=== PATIENT | male | born 1975 | race Caucasian/White ===

== ENCOUNTER → 2019-03-30 15:02 | Outpatient (CLI) | payer BC, SELFPAY ==
[2019-03-30 16:28] LABS: Cholesterol 207 mg/dL (140-199); HDL Cholesterol 45 mg/dL (40-60); LDL Cholesterol Calculated 118 mg/dL (<100); Triglycerides 218 mg/dL (35-150)
[2019-03-30 16:41] LABS: Vitamin D 25 Hydroxy (D3) 17.4 ng/mL (30.0-100.0)
[2019-04-03 14:33] LABS: Varicella IgG Antibody < 135.00 Index (< 135.00)
== END ==
PROVIDERS: PCP Student in an Organized Health Care Education/Training Program; Visit Provider Student in an Organized Health Care Education/Training Program
DX: E55.9 Vitamin D deficiency, unspecified (principal); Z71.1 Person with feared health complaint in whom no diagnosis is made; Z71.89 Other specified counseling; Z13.220 Encounter for screening for lipoid disorders
CPT/HCPCS: 36415; 80061; 82306; 86787

== ENCOUNTER 2019-04-24 09:52 | Observation (INO) | payer BC, SELFPAY ==
[2019-04-17 14:30] VITALS: BMI 31.1
[2019-04-24] VITALS (30 sets, daily range): BP systolic 113–152; BP diastolic 71–107; PULSE 60–119; RESP 9–20; TEMP 35.7–37.1; O2SAT 90–98; BMI 31.1
--- NOTE | 2019-04-24 | PATH_ITS ---
[facility] Accession Number: [id number] . 01 Material submitted: . hernia - UMBILICAL HERNIA SAC . 02 Diagnosis: Umbilica Hernia Sac, Hernia Repair: Portions of partially mesothelial-lined fibroadipose and fibroconnective tissue, consistent with hernia sac contents. [facility]/04/26/2019 . 02 Electronically signed: . Maddy Jones MD, Pathologist NPI- [id number] . 01 Gross description: . Received in formalin, labeled umbilical hernia sac, is a piece of cifuentes-yellow and plummer-purple rubbery membranous adipose tissue (8.6 x 5.5 x 1.4 cm). Validation Architect tissue is submitted in cassettes A1 and A2. ([id number]) /MRV . 02 Pathologist provided ICD-10: K42.9 . 02 CPT . 506848 Performed at: 01 [facility] [address] [facility], [place], [place] [id number] MD Stoen Hutson MD Phone: [phone] Performed at: 02 [facility] [address] [place], [place] [id number] MD Sheri Gotti MD Phone: [phone]
--- NOTE | 2019-04-24 10:32 | PM.PREOP ---
Pre-operative Note Interval Note History & Physical reviewed/Exam performed by Physician: Yes Changes to H&P: No
[2019-04-24] MEDS: LACTATED RINGERS 1,000 ML 100 ML IV ×3 (10:44→13:55)
[2019-04-24] MEDS: CEFAZOLIN 2 GM/100 ML FROZ.PIGGY IV (10:51)
--- NOTE | 2019-04-24 11:06 | SUR.OPER ---
Supine on padded OR bed, head on pillow, arms secured on padded arm boards at <90 degrees abduction, legs uncrossed, safety belt at thigh, tape over blanket over lower legs.
[2019-04-24] MEDS: BUPIVACAINE 0.5% (PF) VIAL 30 ML INJ (11:19)
[2019-04-24] MEDS: HYDROMORPHONE 2 MG INJ 0.5 MG IV ×2 (13:09→13:18)
[2019-04-24] MEDS: ONDANSETRON 4 MG/2 ML INJ IV ×2 (13:23→13:41)
--- NOTE | 2019-04-24 13:25 | P.OP_ITS ---
Operative Date/Time/Diagnoses Date of procedure: 04/24/19 Time of procedure: 13:15 Pre-op diagnosis: umbilical hernia Post-op diagnosis: same Procedure & Clinicians Procedure: open umbilical hernia repair with mesh Same procedure as scheduled: Yes Indications: 43 y.o male with a symptomatic umbilical hernia. Surgeon: Dejan Hall Click Yes if Unassisted: Yes Anesthesia Type: General Operative Notes Findings: incarcerated umbilical hernia containing omentum Specimen(s): other (hernia sac) Estimated Blood Loss (mL): 10 Procedure in detail: Patient was brought to the operating room and placed supine on the table. Bilateral lower extremity compression devices were applied. General anesthesia was induced and he was intubated with a LMA. He was then prepped and draped in usual sterile fashion. Time-out was performed to ensure the correct patient procedure necessary equipment within the operating room. He received 2 g of Ancef prior to skin incision. A curvilinear infraumbilical incision was made through the skin and subcutaneous tissue. The hernia sac was dissected off of the umbilicus. The hernia sac was large and chronically incarcerated. The adhesions between the hernia sac and the fascia were carefully dissected circumferentially. Despite this it was still incarcerated and required extending the fascial defect inferiorly with [place]. The hernia sac was opened carefully using tess and was found to contain viable omentum. The hernia sac was transected and passed off the field as specimen. The omentum was returned to the abdomen. Below the the level of the fascia I freed up the adhesions of the hernia sac so that there was a clean margin of fascia circumferentially and the hernia was entirely reduced. The defect measured 8 by 8 cm and we selected a 10 x 15 piece of polypropelen mesh. The mesh was trimmed to size to allow a 2 cm fascial overlap. The mesh was then secured to the undersurface of the fascia circumferentially using interupted 0 Prolene suture. Wound was inspected and found to be hemostatic. The subcutaneous tissues then reapproximated using 3 0 Vicryl. The skin was then closed using a running Monocryl suture followed by the application of Dermabond. Sponge instrument count at the end of the operation was correct. Patient tolerated procedure well. He emerged from anesthesia and was extubated and transferred to the postoperative care unit in stable condition Complications: none Condition: stable Disposition: same day surgery
--- NOTE | 2019-04-24 13:32 | SUR.PHASEI ---
Report given to Rachel SIMON .
--- NOTE | 2019-04-24 13:35 | SUR.PHASEI ---
States that nausea is a little better, pain 5-6/10 discomfort more that sharp pain.
--- NOTE | 2019-04-24 13:46 | SUR.PHASEI ---
1341 Rx repeated for nausea. pain 'doesn't feel any different... it feels like pressure.
--- NOTE | 2019-04-24 14:15 | SUR.PHASEI ---
dozing, arouses easily, diaphoretic after fentanyl, cool washcloth to face, states that his pain and nausea are improved after medication.
--- NOTE | 2019-04-24 14:38 | SUR.PHASEI ---
aroused spontaneously, requested water. Denies nausea. States pain is 4/10. Sat hovering 92-93% @ 4LNP. Told patient that we need him to breath deeper. Returned to sleep.
--- NOTE | 2019-04-24 15:09 | SUR.PHASEI ---
discussed patient status with coordinator, JOSE, goes down to 92% on 4LNP, have not attempted to wean from O2. Plan to transfer to OPD on 4LNP and will discuss with surgeon when he is available.
[2019-04-24] MEDS: METOCLOPRAMIDE 10 MG/2 ML INJ IV (15:28)
--- NOTE | 2019-04-24 15:33 | SUR.PHASEI ---
1533 had a brief episode of nausea which resolved quickly. Had planned to medicate for nausea prior to pain med. While the anti-emetic was being administered, pt. stated that his pain had gone down from a 6 to a 4/10. States that he doesn't need med.
[2019-04-24] MEDS: fentaNYL 100 MCG/2 ML INJ 50 MCG IV (15:44)
--- NOTE | 2019-04-24 16:22 | SUR.PHASEI ---
Resumed care. Patient awake, oriented, denies pain other that 3/10 at surgical site. Denies any other pain or nausea. Dr. Hall reviewing EKG, will ask anesthesia to review. Returned to O2 @ 4LnP. Pt. texting , will have her return to the hospital. 0135 Glenna Valencia RN taking EKG to anesthesia.
--- NOTE | 2019-04-24 16:26 | DI.RAD.S_ITS ---
PROCEDURE: XR CHEST 1V INDICATIONS: Hypoxia post operative TECHNIQUE: One view of the chest was acquired. COMPARISON: None. FINDINGS: Surgical changes and devices: None. Lungs and pleura: Lung volumes are low. Mild atelectasis is present at the left lung base. The lungs are otherwise clear. No pleural effusion or pneumothorax. Mediastinum: Mediastinal contours appear normal. Heart size is normal. Bones and chest wall: No suspicious bony lesions. Overlying soft tissues appear unremarkable. IMPRESSION: Low lung volumes and left basilar atelectasis. Dictated by: Vale Corley M.D. on 04/24/2019 at 17:09 Approved by: Vale Corley M.D. on 04/24/2019 at 17:09
--- NOTE | 2019-04-24 16:33 | SUR.PHASEI ---
CXR done, surgeon is talking with the patient after reviewing pt w/anesthesia. He will go talk to the patient's .
--- NOTE | 2019-04-24 16:56 | PM.EVENT ---
Date Patient Seen: 04/24/19 Time Patient Seen: 16:56 The patient evaluated in PACU status post umbilical hernia repair. Patient was in significant amount of abdominal pain received IV Dilaudid and fentanyl. He now mildly hypoxic to the upper 80s on room air. His vital signs are otherwise within normal limits. He has no complaint at this point denies chest pain, abdominal pain is controlled no emesis. An EKG was performed and demonstrates normal sinus rhythm a chest x-ray was performed that demonstrates normal expanded lungs no evidence of pneumothorax per my read official read is pending. I discussed the hypoxia with patient and his and I think the most reasonable plan is to bring him in overnight for observation with telemetry.
[2019-04-24 17:13] LABS: Troponin I < 0.012 ng/mL (0.01-0.034)
--- NOTE | 2019-04-24 17:31 | SUR.PHASEI ---
1705 Dr. cheung spoke with patient, approved transfer to floor. 1710 to room 215. Pt. able to stand to transfer into the bed, slightly light-headed (pt got up too quickly). He wanted to walk into the bathroom, but he was place into the bed and offered a urinal. SCD's on. Bed down and locked, call light within reach, O2 at 4LNP. Report was given to RN prior to transfer, no further questions on arrival. Staff will place telemetry on the patient.
--- NOTE | 2019-04-24 17:43 | SUR.PHASEI ---
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
[2019-04-24] MEDS: SODIUM CHLORIDE 0.9% 1,000 ML 100 ML IV (18:06)
[2019-04-24] MEDS: KETOROLAC 30 MG/ML VIAL IV (18:19)
--- NOTE | 2019-04-24 18:54 | PC.NURSE ---
Addendum entered by Jennifer You R.N. 04/24/19 21:35: Pt denies discomfort w/ketoralac Ambulated hallway w/staff. IVF changd to HL as per orders. Taking general diet. Call light w/in reach, bed alarm on for pt safety. Continue w/plan of care. Original Note: Pt arrived from PACU awake Denies discomfort at this time. IV NS infusing as per orders into the right hand w/o incidence. ABD soft, slightly tender to touch, Incision w/surgi glue intact. Call light w/in reach, in room Pt calls appropriately for needs.
[2019-04-24] MEDS: ACETAMINOPHEN 325 MG TABLET 650 MG PO (23:58)
[2019-04-25] MEDS: KETOROLAC 30 MG/ML VIAL IV (05:27)
[2019-04-25 05:45] VITALS: BP 134/77; PULSE 94; RESP 17; TEMP 36.6; O2SAT 99
--- NOTE | 2019-04-25 07:41 | PM.DS.1 ---
History of Present Illness Chief complaint: [id number] UMBILICAL HERNIA REPAIR W/MESH Discharge Providers Discharge Date: 04/25/19 Primary care physician: Tom Resendiz MD Discharge provider: Dejan Hall MD Summary Discharge Diagnosis: umbilical hernia mild hypoxia requiring supplemental oxygen narcotic sensitivity Hospital Course: A 43-year-old man with no significant medical history underwent a open umbilical hernia repair on 04/24/2019. Operation was unremarkable. Postoperatively the patient had a significant amount of nausea associated with respiratory insufficiency. He required supplemental oxygen to maintain his saturations and would desat to the high 80s when taken off oxygen. He underwent a EKG chest x-ray as well as troponin which were all normal. Given his mild hypoxia I kept him for observation. Overnight he did very well with resolution of his hypoxia. His nausea is gone. He is tolerating a diet. I think the most likely explanation is that he had sensitivity to the narcotics and after switching him to Toradol his problems completely resolved. He is stable for discharge at this time. Status at Discharge Cognitive/behavioral status at discharge: oriented Functional status at discharge: independent ambulation Overall status at discharge: patient is back to baseline Time Spent with Patient Less than 30 minutes Exam Vital Signs (past 8 hours): - 04/25/19 05:45 Temperature 97.8 F Pulse Rate 94 H Respiratory Rate 17 Blood Pressure 134/77 Pulse Oximetry 99 Oxygen Delivery Method Nasal Cannula Oxygen Flow Rate 1 Narrative Exam Narrative: General-adult male no acute distress, well nourished HEENT-moist mucous membranes, no scleral icterus Neck-supple with full range of motion, no lymphadenopathy Chest- no labored respirations, clear to auscultation bilaterally Cardiac-regular rate and rhythm Abdomen-soft, nontender, non distended. Infraumbilical incision clean dry intact. No palpable hernia. Extremities-no edema, warm well perfused Neurological-alert and oriented x 3. No focal deficits Skin-normal temperature and turgor, no rashes or ulcers Objective Labs Labs: Laboratory Results - last 24 hr 04/24/19 16:45 Troponin I < 0.012 Discharge Plan Discharge Plan Patient Disposition: Home Discharge Med Rec/Prescriptions Prescriptions: New oxycodone 5 mg capsule 5 mg PO Q4-6H PRN (Reason: pain) Qty: 50 RF: 0 acetaminophen [Tylenol] 325 mg tablet 650 mg PO Q6H PRN (Reason: pain) Qty: 60 RF: 0 ibuprofen 200 mg tablet 400 mg PO Q6H Qty: 60 RF: 0 Follow up/Referrals: Tom Resendiz MD [Primary Care Provider] - Dejan Hall MD [Physician] - Discharge Orders: Discharge (Order); Ordered 04/24/19 Ordered By: Dejan Hall Provider Discharge Instructions Diet: Diet as Tolerated Activity: No lifting >15 lbs for 4 weeks. No driving or operating machinery while taking narcotics. Skin/Wound/Dressing Care Report to your healthcare provider any signs of infection, such as:: chills, fever, increased pain, unusual drainage and unusual redness Visit Report/Discharge Packet Instructions: DI for Hernia Repair, [facility]: Wound Care Stand Alone Forms: Surgery Discharge Discharge Data Primary Care Provider: Tom Resendiz Attending Provider: Dejan Hall
[2019-04-25 08:00] VITALS: BP 120/82; PULSE 96; RESP 18; TEMP 36.8; O2SAT 96
[2019-04-25] MEDS: ACETAMINOPHEN 325 MG TABLET 650 MG PO (08:33)
--- NOTE | 2019-04-25 10:22 | PC.NURSE ---
AM NOTE - pt is alert, up ambul indep to br, voided, to chair, states pain well managed with earlier toradol, Dr. Hall in and umbilical bonded incision w/o drainage, some surrounding bruising, no flatus yet, denies nausea and juarez gen diet this am, discussed constipation, narcotics, given oxycodone script from surg and already filled, reviewed dc instructions with pt and spouse, belongings gathered, including clothing, glasses and cell phone, escorted ambulatory by human resources executive to spouse's car.
--- NOTE | 2019-04-25 11:09 | CM.DANOTE ---
DCP: Case received, EMR reviewed and met with patient. Introduced self and role. Was able to obtain baseline health history from patient. DCP assessment completed with information currently available. Patient is a 43 year old male who admitted yesterday morning to the care of the surgical team. PCP: Dr. Resendiz. Payer: confirmed: Out of [facility] [address]. Patient came to the hospital for a surgical procedure. He had umbilical hernia repair. Met with patient in his room. He was dressed, up sitting in his chair. He is independent, resides in [place] with his . 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 He stated, the surgery went well, just had trouble with the narcotic that they gave me, so they had to keep an eye on me. He has children at home as well. P: Patient is to be discharged home today, with no barriers. Porsha Velasquez RN/Auto Air Conditioning Installer.
== END 2019-04-25 10:43 | disposition home or self-care (01) ==
LOC: OR 13:13 → AC 17:37
PROVIDERS: Admitting Provider Surgery; PCP Student in an Organized Health Care Education/Training Program; Visit Provider Surgery
PROC: (CPT 49587; principal; 2019-04-24 11:00)
DX: K42.0 Umbilical hernia with obstruction, without gangrene (principal); R09.02 Hypoxemia
CPT/HCPCS: 49587; 36415; 71045; 84484; 93005; 94762; C1781; G0378; J0330; J0690; J1100; J1170; J1885; J2405; J2704; J2765; J3010

== ENCOUNTER 2019-05-09 09:07 | Emergency (ER) | payer BC, SELFPAY ==
[2019-04-24 18:08] VITALS: BMI 31.1
[2019-05-09] VITALS (8 sets, daily range): BP systolic 122–153; BP diastolic 89–103; PULSE 82–110; RESP 15–22; TEMP 36.7; O2SAT 94–100
--- NOTE | 2019-05-09 09:19 | ED_ITS ---
HPI - Skin/Abscess/Foreign Bdy General Chief complaint: Skin/Abscess/Foreign Body Stated complaint: POST OP WOUND TWISTING,BLEEDING Time Seen by Provider: 05/09/19 09:18 Source: patient Mode of arrival: ambulatory Limitations: no limitations History of Present Illness HPI narrative: This is a 43-year-old male who comes to the emergency department with complaint of drainage from his belly button. Patient had umbilical hernia repair 3 weeks ago. Patient denies any fevers, no nausea vomiting no issues with bowel movements. He has been stooling regularly. No urinary symptoms. He states he had pain at the belly button with increasing redness and swelling of the belly button. He states that it looked like it was sort of twisting or that the belly button was coming out. Today when he got up to use the restroom he noted that there was reddish fluid coming out of the belly button. It has continued since then. Patient states that the pain was actually a little better yesterday. He is supposed to see his surgeon today for follow-up. Patient denies any other medical issues. Related Data Home Medications Medication Instructions Recorded Confirmed oxycodone 5 mg PO Q4HR PRN 05/09/19 05/09/19 Previous Rx's Medication Instructions Recorded acetaminophen [Tylenol] 650 mg PO Q6H PRN #60 tab 04/24/19 ibuprofen 400 mg PO Q6H #60 tab 04/25/19 clindamycin HCl 300 mg PO QID #40 cap 05/09/19 Allergies Allergy/AdvReac Type Severity Reaction Status Date / Time fentanyl AdvReac Mild Nausea, Verified 05/03/19 16:04 diaphoresis hydromorphone [From Dilaudid] AdvReac Mild Nausea Verified 05/03/19 16:04 Review of Systems Review of Systems ROS Unobtainable: All systems reviewed & are unremarkable except as noted in HPI and below Constitutional Constitutional: Denies chills and Denies fever(s) Cardiovascular Cardiovascular: Denies chest pain and Denies dyspnea Respiratory Respiratory: Denies dyspnea Gastrointestinal Gastrointestinal: Reports abdominal pain (At the umbilicus), Denies melena, Denies hematochezia, Denies change in bowel habits, Denies diarrhea, Denies nausea and Denies vomiting Genitourinary Genitourinary: Denies hematuria, Denies flank pain, Denies urinary frequency, Denies urinary hesitancy and Denies urinary urgency Integumentary/Breasts Skin/Breast: Reports as per HPI and Reports erythema [facility] Medical History Vision disorder (Chronic) Family History Father Cancer Grandfather History of heart disease Grandmother Cancer Grandfather Aneurysm Grandmother Liver failure Social History marital status: household members: spouse occupational status: employed Smoking Status: Never smoker alcohol intake: never substance use type: does not use Social History marital status: household members: spouse occupational status: employed Smoking Status: Never smoker alcohol intake: never substance use type: does not use Exam Narrative Exam Narrative: GENERAL: Alert and oriented x three, nourished, well-appearing male in mild distress. HEENT: Head normocephalic, atraumatic, EOMI, pupils reactive, face symmetric, moist mucous membranes NECK: Supple, full range of motion CARDIOVASCULAR: Regular rate and rhythm without murmurs, rubs or gallops. RESPIRATORY: Breath sounds equal bilaterally, no wheezes rales or rhonchi. ABDOMEN: Soft, nontender to palpation. Patient's umbilicus appears swollen and his umbilicus is now an outie or external. Patient has some surrounding erythema, there is some slight induration but the area is soft. It is nontender. I am able to express serosanguineous fluid easily with palpation. Normoactive bowel sounds all 4 quadrants. No guarding or rebound, rigidity, no mass : No CVA tenderness EXTREMITIES: Normal range of motion, no clubbing or edema. Neurovascularly intact NEUROLOGICAL: Cranial nerves II through XII grossly intact. Moving all extremities SKIN: Warm, dry, no petechiae, no rashes or lesions. Initial Vital Signs Initial Vital Signs: Vital Signs Pulse Rate 110 H 05/09/19 09:12 Respiratory Rate 22 05/09/19 09:12 Blood Pressure 153/96 H 05/09/19 09:12 Pulse Oximetry 99 05/09/19 09:12 Course Orders Ordered: Discontinued Medications Sodium Chloride (Normal Saline 0.9%) 1,000 mls @ 1,000 mls/hr IV BOLUS ONE Stop: 05/09/19 10:16 Last Infusion: 05/09/19 12:12 Dose: 0 mls/hr Documented by: Admin: 05/09/19 10:10 Dose: 1,000 mls/hr Documented by: SELINA Clindamycin Phosphate (Cleocin) 600 mg in 50 mls @ 50 mls/hr IV NOW ONE Stop: 05/09/19 11:02 Last Infusion: 05/09/19 12:12 Dose: 0 mls/hr Documented by: Admin: 05/09/19 10:42 Dose: 50 mls/hr Documented by: SELINA Vital Signs Vital signs: Vital Signs - 8 hr 05/09/19 11:30 05/09/19 12:05 Pulse Rate 86 82 Respiratory Rate 19 18 Blood Pressure [Right Arm] 123/96 H 126/99 H Pulse Oximetry 98 97 MDM - Skin/Abscess/Foreign Bdy Lab Data Attestation: I reviewed the patient's lab results. Result diagrams: 05/09/19 09:33 05/09/19 09:33 Labs: Lab Results 05/09/19 05/09/19 05/09/19 Range/Units 09:33 09:33 09:33 WBC 6.2 (4.5-11.0) X10^3/uL RBC 5.19 (4.5-5.9) X10^6/uL Hgb 15.1 (13.5-17.5) g/dL Hct 44.5 (41-53) % MCV 85.9 (80-100) fL MCH 29.0 (26-34) PG MCHC 33.8 (30-36) % RDW 13.5 (11.6-14.8) % Plt Count 356 (150-400) X10^3/uL Neut % (Auto) 52.1 (50-75) % Lymph % (Auto) 36.5 (25-40) % [place] % (Auto) 7.9 (3-14) % Eos % (Auto) 2.7 (2-4) % Baso % (Auto) 0.8 (0-2) % Neut # (Auto) 3200 (0183-3592) /uL Lymph # (Auto) 2300 (9553-9560) /uL [place] # (Auto) 500 (0-900) /uL Eos # (Auto) 200 (0-450) /uL Baso # (Auto) 100 (0-100) /uL PT 12.2 (10.1-12.7) SECONDS INR 1.1 (0.9-1.3) APTT 35 (26.4-36.2) SECONDS Sodium (137-145) mmol/L Potassium (3.4-5.1) mmol/L Chloride (98-107) mmol/L Carbon Dioxide (22-32) mmol/L BUN (9-20) mg/dL Creatinine (0.66-1.25) mg/dL Estimated GFR (>60) mL/min BUN/Creatinine Ratio (6-22) Glucose (70-100) mg/dL Lactate (0.7-2.1) mmol/L Calcium (8.4-10.2) mg/dL Total Bilirubin (0.2-1.3) mg/dL AST (17-59) IU/L ALT (21-72) IU/L Alkaline Phosphatase (38-126) U/L Total Protein (6.3-8.2) g/dL Albumin (3.5-5.0) g/dL Globulin (1.7-4.1) g/dL Albumin/Globulin Ratio (1.0-2.8) Lipase (23-300) U/L Procalcitonin < 0.05 (<0.5) ng/mL 05/09/19 05/09/19 Range/Units 09:33 09:33 WBC (4.5-11.0) X10^3/uL RBC (4.5-5.9) X10^6/uL Hgb (13.5-17.5) g/dL Hct (41-53) % MCV (80-100) fL MCH (26-34) PG MCHC (30-36) % RDW (11.6-14.8) % Plt Count (150-400) X10^3/uL Neut % (Auto) (50-75) % Lymph % (Auto) (25-40) % [place] % (Auto) (3-14) % Eos % (Auto) (2-4) % Baso % (Auto) (0-2) % Neut # (Auto) (3953-8663) /uL Lymph # (Auto) (2066-7034) /uL [place] # (Auto) (0-900) /uL Eos # (Auto) (0-450) /uL Baso # (Auto) (0-100) /uL PT (10.1-12.7) SECONDS INR (0.9-1.3) APTT (26.4-36.2) SECONDS Sodium 140 (137-145) mmol/L Potassium 4.0 (3.4-5.1) mmol/L Chloride 100 (98-107) mmol/L Carbon Dioxide 27 (22-32) mmol/L BUN 23 H (9-20) mg/dL Creatinine 1.00 (0.66-1.25) mg/dL Estimated GFR > 60.0 (>60) mL/min BUN/Creatinine Ratio 23.0 H (6-22) Glucose 103 H (70-100) mg/dL Lactate 1.3 (0.7-2.1) mmol/L Calcium 9.6 (8.4-10.2) mg/dL Total Bilirubin 0.6 (0.2-1.3) mg/dL AST 21 (17-59) IU/L ALT 13 L (21-72) IU/L Alkaline Phosphatase 67 (38-126) U/L Total Protein 8.1 (6.3-8.2) g/dL Albumin 4.6 (3.5-5.0) g/dL Globulin 3.5 (1.7-4.1) g/dL Albumin/Globulin Ratio 1.3 (1.0-2.8) Lipase 164 (23-300) U/L Procalcitonin (<0.5) ng/mL Imaging Data US - abdomen: Radiologist's impression: [address] [address] Ultrasound Report Signed Patient: Orlando Davis CMR#: [id number] : 1975Acct:[id number] Age/Sex: 43 / MDate of Service: 05/09/19 Loc: ED Accession Number: [id number] Procedure: US abdomen limited Ordering Provider: Mank,Soledad C D.O. PROCEDURE: US ABDOMEN LIMITED INDICATIONS: DRAINAGE FROM UMBILICUS, S/P UMBILICAL HERNIA REPAIR TECHNIQUE: Real-time focused scanning was performed of the abdomen, with image documentation. COMPARISON: None. FINDINGS: Targeted sonographic imaging within the periumbilical region of the anterior abdomen was performed. There appears to be a complex fluid collection within the peritoneal cavity or deep subcutaneous tissues of the periumbilical region that measures 5.8 x 3.8 x 6.4 cm. No definite recurrent hernia is evident. IMPRESSION: 1. No evidence of a recurrent periumbilical hernia. 2. Complex fluid collection at the surgical site may represent hematoma, seroma, or abscess. Clinical correlation is recommended. The need for better characterization utilizing contrast enhanced CT may be determined clinically. Dictated by: Selvin Wilson M.D. on 05/09/2019 at 9:48 Approved by: Selvin Wilson M.D. on 05/09/2019 at 9:49 MDM Narrative Medical decision making narrative: Spoke with Dr. Hall, plan for US and labs and fluid 23 sent for culture. Fluid is serosanguineous without any purulence changes I suspect patient has a seroma and is developing some overlying cellulitis. Patient's lab work including CBC, CMP and procalcitonin are normal, except for a slightly elevated BUN of 23. Patient's ultrasound shows a complex fluid collection. Of recurrent periumbilical hernia. Discussed with surgery, he would like patient to continue with antibiotics we discussed doing p.o. clindamycin. Plan for follow-up this week. I discussed with patient he can return sooner if he needs to, patient has prescription for oral antibiotics. Discussion for wound care and reasons to return Discharge Plan Departure Patient Disposition: Home Clinical Impression: Cellulitis of umbilicus, History of umbilical hernia repair Discharge Date/Time: 05/09/19 12:20 Instructions: DI for Cellulitis -- Adult Activity Restrictions/Additional Instructions: Follow-up with your general surgeon in the next 5-7 days. Call for an appointment time today. Continue antibiotics as prescribed take until they are completely gone. Prescription was sent to [facility] in [place]. You may use warm compresses to the area that is draining and continue to express fluid daily. Return to the emergency department for fevers greater than 100.4 F, worsening, increasing fluid drainage, drainage that is purulent or appears to be pus, if you are having increasing pain, persistent vomiting, lightheadedness, passing out, spreading redness of the abdomen, no black or bloody stools or other new or concerning symptoms. Prescriptions: New clindamycin HCl 300 mg capsule 300 mg PO QID Qty: 40 RF: 0 No Action acetaminophen [Tylenol] 325 mg tablet 650 mg PO Q6H PRN (Reason: pain) Qty: 60 RF: 0 ibuprofen 200 mg tablet 400 mg PO Q6H Qty: 60 RF: 0 oxycodone 5 mg tablet 5 mg PO Q4HR PRN (Reason: Pain (Scale Score 7-10)) RF: 0 Referrals: Tom Resendiz MD [Primary Care Provider] - Dejan Hall MD [Physician] -
--- NOTE | 2019-05-09 09:29 | DI.US.S_ITS ---
PROCEDURE: US ABDOMEN LIMITED INDICATIONS: DRAINAGE FROM UMBILICUS, S/P UMBILICAL HERNIA REPAIR TECHNIQUE: Real-time focused scanning was performed of the abdomen, with image documentation. COMPARISON: None. FINDINGS: Targeted sonographic imaging within the periumbilical region of the anterior abdomen was performed. There appears to be a complex fluid collection within the peritoneal cavity or deep subcutaneous tissues of the periumbilical region that measures 5.8 x 3.8 x 6.4 cm. No definite recurrent hernia is evident. IMPRESSION: 1. No evidence of a recurrent periumbilical hernia. 2. Complex fluid collection at the surgical site may represent hematoma, seroma, or abscess. Clinical correlation is recommended. The need for better characterization utilizing contrast enhanced CT may be determined clinically. Dictated by: Selvin Wilson M.D. on 05/09/2019 at 9:48 Approved by: Selvin Wilson M.D. on 05/09/2019 at 9:49
[2019-05-09 09:55] LABS: Add Manual Diff / Slide Review NO; Basophils Absolute Auto 100 /uL (0-100); Basophils Percent Auto 0.8 % (0-2); Eosinophils Absolute Auto 200 /uL (0-450); Eosinophils Percent Auto 2.7 % (2-4); Hematocrit 44.5 % (41-53); Hemoglobin 15.1 g/dL (13.5-17.5); Lymphocytes Absolute Auto 2300 /uL (1100-4500); Lymphocytes Percent Auto 36.5 % (25-40); Mean Corpuscular HGB Conc 33.8 % (30-36); Mean Corpuscular Volume 85.9 fL (80-100); Monocytes Absolute Auto 500 /uL (0-900); Monocytes Percent Auto 7.9 % (3-14); Neutrophils Absolute Auto 3200 /uL (1500-7000); Neutrophils Percent Auto 52.1 % (50-75); Platelet Count 356 X10^3/uL (150-400); Red Blood Cell Count 5.19 X10^6/uL (4.5-5.9); Red Cell Distribution Width 13.5 % (11.6-14.8); White Blood Cell Count 6.2 X10^3/uL (4.5-11.0)
[2019-05-09 09:57] LABS: INR 1.1 (0.9-1.3); Prothrombin Time 12.2 SECONDS (10.1-12.7)
[2019-05-09 09:59] LABS: PTT Partial Thromboplastin Tim 35 SECONDS (26.4-36.2)
[2019-05-09 10:04] LABS: Lactate (Lactic Acid) 1.3 mmol/L (0.7-2.1)
[2019-05-09 10:05] LABS: Alanine Aminotransferase 13 IU/L (21-72); Albumin 4.6 g/dL (3.5-5.0); Albumin Globulin Ratio 1.3 (1.0-2.8); Alkaline Phosphatase 67 U/L (38-126); Aspartate Aminotransferase 21 IU/L (17-59); Bilirubin Total 0.6 mg/dL (0.2-1.3); Blood Urea Nitrogen 23 mg/dL (9-20); Calcium 9.6 mg/dL (8.4-10.2); Carbon Dioxide 27 mmol/L (22-32); Chloride 100 mmol/L (98-107); Estimated Glomerular Filt Rate > 60.0 mL/min (>60); Globulin 3.5 g/dL (1.7-4.1); Glucose 103 mg/dL (70-100); HEMOLYSIS < 15 (0-50); Lipase 164 U/L (23-300); Sodium 140 mmol/L (137-145); Total Protein 8.1 g/dL (6.3-8.2)
[2019-05-09] MEDS: SODIUM CHLORIDE 0.9% 1,000 ML 1000 ML IV (10:10)
[2019-05-09 10:20] LABS: Procalcitonin < 0.05 ng/mL (<0.5)
[2019-05-09] MEDS: CLINDAMYCIN 600 MG/50 ML PIGGYBACK 50 MG IV (10:42)
== END 2019-05-09 12:20 | disposition home or self-care (01) ==
PROVIDERS: Emergency Provider Emergency Medicine; PCP Student in an Organized Health Care Education/Training Program
DX: L03.316 Cellulitis of umbilicus (principal); Z98.890 Other specified postprocedural states
CPT/HCPCS: 36591; 76705; 80053; 83605; 83690; 84145; 85025; 85610; 85730; 87070; 87077; 87186; 87205; 96361; 96365; 99284; 99285

== ENCOUNTER 2019-06-12 13:36 | Day surgery (SDC) | payer BC, SELFPAY ==
[2019-04-24 18:08] VITALS: BMI 31.1
[2019-06-12] VITALS (14 sets, daily range): BP systolic 124–161; BP diastolic 76–119; PULSE 81–94; RESP 11–18; TEMP 36.1–36.7; O2SAT 92–96; BMI 30.1
[2019-06-12] MEDS: LACTATED RINGERS 1,000 ML 42 ML IV (14:07)
--- NOTE | 2019-06-12 15:00 | PM.HP.1 ---
History of Present Illness History of Present Illness Date Patient Seen: 06/12/19 Time Patient Seen: 15:00 Chief complaint: [id number] Narrative: 43-year-old male 2 months status post open umbilical hernia repair with mesh and persistent seroma despite multiple courses of antibiotics. He presents today for incision and drainage the umbilical hernia repair site. Please refer to the office notes for further detail. Patient History Medical History Vision disorder (Chronic) Family History Father Cancer Grandfather History of heart disease Grandmother Cancer Grandfather Aneurysm Grandmother Liver failure Social History marital status: household members: spouse occupational status: employed Smoking Status: Never smoker alcohol intake: never substance use type: does not use Family & Social History Family History Father Cancer Grandfather History of heart disease Grandmother Cancer Grandfather Aneurysm Grandmother Liver failure Social History: household members spouse Tobacco & Substance use: Smoking Status Never smoker alcohol intake never alcohol intake frequency 0-2 drinks per day Substance Use Type does not use Meds Home Medications and Allergies Home Medications Medication Instructions Recorded Confirmed Type acetaminophen [Tylenol] 650 mg PO Q6H PRN #60 tab 04/24/19 06/11/19 Rx ibuprofen 400 mg PO Q6H #60 tab 04/25/19 06/12/19 Rx oxycodone 5 mg PO Q4HR PRN 05/09/19 06/12/19 History clindamycin HCl 300 mg capsule 300 mg PO QID #40 cap 06/08/19 06/12/19 Rx Allergies Allergy/AdvReac Type Severity Reaction Status Date / Time fentanyl AdvReac Mild Nausea, Verified 06/11/19 15:46 diaphoresis hydromorphone [From Dilaudid] AdvReac Mild Nausea Verified 06/11/19 15:46 Review of Systems Review of Systems ROS Unobtainable: All systems reviewed & are unremarkable except as noted in HPI and below Exam Vital Signs (past 8 hours): - 06/12/19 14:08 Temperature 98.0 F Pulse Rate 92 H Respiratory Rate 16 Blood Pressure 140/94 H Pulse Oximetry 96 Oxygen Delivery Method Room Air Narrative Exam Narrative: General-no acute distress, well nourished HEENT-moist mucous membranes, no scleral icterus Neck-supple, no lymphadenopathy Chest- non labored respirations, clear to auscultation bilaterally Cardiac-regular rate no peripheral edema Abdomen-Umbilical incision with fluctance and erythema no cellultitis Extremities-warm, well perfused Neurological-alert and oriented, no focal deficits Assessment & Plan Assessment and plan (1) Wound abscess: Current visit: Yes Status: Acute Assessment & Plan narrative: 43-year-old male 2 months status post open umbilical hernia repair with mesh and a surgical site infection. Presents today for incision and drainage of the umbilical wound. His questions have been answered he is in agreement with this plan.
[2019-06-12] MEDS: CEFAZOLIN 2 GM/100 ML FROZ.PIGGY IV (15:23)
--- NOTE | 2019-06-12 15:36 | SUR.OPER ---
Supine on padded OR bed, head on pillow, arms secured on padded arm boards at <90 degrees abduction, legs uncrossed, safety belt at thigh, tape over blanket over lower legs.
[2019-06-12] MEDS: BUPIVACAINE 0.25% (PF) VIAL 30 ML INJ (15:41)
--- NOTE | 2019-06-12 16:38 | SUR.PHASEI ---
Patient arrived A/O x 4. UNDERWOOD's x 4. Denies pain/nausea. Dressing has small amount of drainage.
--- NOTE | 2019-06-12 16:57 | SUR.PHASEI ---
Assumed care for break relief. Pt A&O, rates pain 2/10, tolerating PO well. AURORA Pittmna reported blood accumulation under the clear dressing to the surgeon via the circulating nurse in the OR.
--- NOTE | 2019-06-12 17:03 | SUR.PHASEI ---
Declined more PO intake, states he doesn't need any med for pain
--- NOTE | 2019-06-12 17:14 | SUR.PHASEI ---
Pt reported that he felt drainage 'running down both sides' from his dressing. Actually was leaking bloody fluid down the abdomen from the surgical site. Skin cleaned by Vicenta Pittman, abdomen round, she states that it is unchange. belly soft. dressing reinforced with ABD taped over opsite. Returned care to VICENTA Pittman
--- NOTE | 2019-06-12 17:32 | SUR.PHASEI ---
Left msg with Dr Hall regarding drainage from surgical site.
--- NOTE | 2019-06-12 17:48 | SUR.PHASEI ---
Dr Hall at bedside.
--- NOTE | 2019-06-12 18:31 | PM.OP.1 ---
Operative Date/Time/Diagnoses Date of procedure: 06/12/19 Time of procedure: 18:31 Pre-op diagnosis: Wound infection after open umbilical hernia repair Post-op diagnosis: same Procedure & Clinicians Procedure: Incision and drainage of umbilical abscess Same procedure as scheduled: Yes Indications: This is a 43-year-old man who underwent a open umbilical hernia pair with mesh 2 months ago. During his postoperative. He has had recurrence seroma formation and intermittent cellulitis of the surgical site. He has been treated with several courses of antibiotics has intermittent improvement and then regression. He presents today for incision and drainage of the umbilical wound. Surgeon: Dejan Hall Click Yes if Unassisted: Yes Anesthesia Type: General Operative Notes Findings: Abscess of the umbilicus Specimen(s): other (Culture from umbilical abscess) Estimated Blood Loss (mL): 10 Procedure in detail: Patient brought to the operating room and placed supine. Bilateral lower extremity compression devices were applied. He received 2 g of Ancef prior to skin incision. General anesthesia was induced and he was intubated with an LMA. Incision was made through the prior umbilical incision. The subcutaneous tissues were divided. The fascial umbilical defect was intact and the mesh was not visible. A spot within the umbilicus had become discolored and partially necrotic and here an incision was made. The tissues beneath contained some purulent material. The cavity was debrided with gauze and thoroughly irrigated. Hemostasis was achieved. Because the tissues at the inferior aspect of the umbilicus were relatively clean I elected to the loosely close skin skin here using interrupted nylon suture. The small opening within the umbilicus with the abscess cavity was was left open and packed with iodoform dressing. The patient tolerated the procedure well. The sponge instrument count at the end the operation was correct. Patient emerged from anesthesia was extubated and transferred to the postoperative care unit in stable condition Complications: none Post-operative Condition: stable Disposition: same day surgery
== END 2019-06-12 18:45 | disposition home or self-care (01) ==
PROVIDERS: Family Provider Student in an Organized Health Care Education/Training Program; PCP Student in an Organized Health Care Education/Training Program; Visit Provider Surgery
PROC: (CPT 10180; principal; 2019-06-12 14:45)
DX: T81.41XA Infection following a procedure, superficial incisional surgical site, initial encounter (principal)
CPT/HCPCS: 10180; 87070; 87075; 87077; 87186; 87205; J0690; J1100; J1885; J2405; J2704; J3010

== ENCOUNTER → 2020-12-26 16:32 | Outpatient (CLI) | payer BC, SELFPAY ==
[2019-04-24 18:08] VITALS: BMI 31.1
[2020-12-26] MEDS: COVID-19 VACC #1, MRNA(MOD) 100 MCG/0.5 ML VIAL IM (16:39)
== END ==
PROVIDERS: Family Provider Student in an Organized Health Care Education/Training Program; PCP Student in an Organized Health Care Education/Training Program; Visit Provider Internal Medicine
DX: Z23 Encounter for immunization (principal)
CPT/HCPCS: 0011A; 91301

== ENCOUNTER → 2021-01-23 07:39 | Outpatient (CLI) | payer BC, SELFPAY ==
[2019-04-24 18:08] VITALS: BMI 31.1
[2021-01-23] MEDS: COVID-19 VACC #2, MRNA(MOD) 100 MCG/0.5 ML VIAL IM (07:53)
== END ==
PROVIDERS: Family Provider Student in an Organized Health Care Education/Training Program; PCP Student in an Organized Health Care Education/Training Program; Visit Provider Internal Medicine
DX: Z23 Encounter for immunization (principal)
CPT/HCPCS: 0012A; 91301

== ENCOUNTER → 2025-05-30 08:51 | Outpatient (CLI) | payer OTHER, SELFPAY ==
[2019-04-24 18:08] VITALS: BMI 31.1
--- NOTE | 2025-05-30 08:52 | DI.RAD.S_ITS ---
PROCEDURE: XR LUMBAR SPINE 3V INDICATIONS: Right low back pain with sciatica TECHNIQUE: 3 views of the lumbar spine were acquired. COMPARISON: None. FINDINGS: Mild levoscoliosis and left tilt some of which may be artifact from positioning. Mild degenerative changes lower thoracic, lumbar spine with disc space narrowing, osteophytes and facet hypertrophic changes most notably at L4-5 and L5-S1. Grade 1-2 spondylolysis/spondylolisthesis L5-S1. IMPRESSION: L5-S1 spondylolysis/spondylolisthesis. Mild degenerative changes. Mild levoscoliosis as discussed above. If symptoms persist or worsen, or there is high clinical suspicion of lumbar abnormality, MRI could be performed. Dictated by: Florentin Henderson M.D. on 05/31/2025 at 13:17 Approved by: Florentin Henderson M.D. on 05/31/2025 at 13:18
[2025-05-30 09:47] LABS: Hematocrit 46.4 % (41-53); Hemoglobin 15.6 g/dL (13.5-17.5); Mean Corpuscular HGB Conc 33.7 % (30-36); Mean Corpuscular Hemoglobin 28.1 PG (26-34); Mean Corpuscular Volume 83.3 fL (80-100); Platelet Count 283 X10^3/uL (150-400)
[2025-05-30 10:00] LABS: Hemoglobin A1C% w Est Avg Glu 5.8 % (4.0-6.0)
[2025-05-30 11:17] LABS: Alanine Aminotransferase 22 IU/L (<50); Albumin 4.6 g/dL (3.5-5.0); Albumin Globulin Ratio 1.7 (1.0-2.8); Alkaline Phosphatase 58 U/L (38-126); Blood Urea Nitrogen 18 mg/dL (9-20); Calcium 9.3 mg/dL (8.4-10.2); Carbon Dioxide 25 mmol/L (22-32); Chloride 104 mmol/L (98-107); Cholesterol 183 mg/dL (140-199); Estimated Glomerular Filt Rate > 60 mL/min (>60); Globulin 2.7 g/dL (1.7-4.1); Glucose 101 mg/dL (70-99); HDL Cholesterol 49 mg/dL (40-60); HEMOLYSIS < 15 (0-50); Potassium 4.5 mmol/L (3.4-5.1); Sodium 139 mmol/L (137-145); Total Protein 7.3 g/dL (6.3-8.2); Triglycerides 107 mg/dL (35-150)
[2025-05-30 11:29] LABS: Vitamin D 25 Hydroxy (D3) 57.7 ng/mL (30.0-100.0)
[2025-05-30 15:21] LABS: Microalbumi Creatinin Ratio Ur 9.0 ug/mg CR (<30)
[2025-05-30 17:19] LABS: HIV 1 & 2 Ab/Ag 4th Gen Combo NEGATIVE (NEGATIVE); Hep C Virus Ab w/Reflex Quant NEGATIVE s/c (NEGATIVE)
== END ==
PROVIDERS: PCP Family Medicine; Referring Provider Family Medicine; Visit Provider Family Medicine
DX: M54.41 Lumbago with sciatica, right side (principal); E55.9 Vitamin D deficiency, unspecified; Z11.59 Encounter for screening for other viral diseases; E66.9 Obesity, unspecified; Z13.220 Encounter for screening for lipoid disorders; Z11.4 Encounter for screening for human immunodeficiency virus [HIV]; Z13.1 Encounter for screening for diabetes mellitus; I10 Essential (primary) hypertension; M43.07 Spondylolysis, lumbosacral region; M41.86 Other forms of scoliosis, lumbar region
CPT/HCPCS: 36415; 72100; 80053; 80061; 82043; 82306; 82570; 83036; 85027; 86803; 87389

== ENCOUNTER 2025-07-09 07:43 | Day surgery (SDC) | payer OTHER, SELFPAY ==
[2019-04-24 18:08] VITALS: BMI 31.1
[2025-07-09 08:06] VITALS: BP 133/101; PULSE 95; RESP 20; TEMP 36.2; O2SAT 99
[2025-07-09] MEDS: LACTATED RINGERS 1,000 ML 42 ML IV (08:12)
--- NOTE | 2025-07-09 08:34 | P.OP.PRE_ITS ---
Pre-operative Note
--- NOTE | 2025-07-09 08:34 | PM.PREOP ---
Pre-operative Note COVID-19 COVID-19 status: Not tested Interval Note History & Physical reviewed/Exam performed by Physician: Yes Changes to H&P: No ASA Class (for procedural sedation): II
--- NOTE | 2025-07-09 09:14 | P.OP.COLON_ITS ---
Operative Date/Time/Diagnoses
--- NOTE | 2025-07-09 09:14 | PM.OP.COLON ---
Operative Date/Time/Diagnoses Date of procedure: 07/09/25 Time of procedure: 09:14 Pre-op diagnosis: Rectal bleeding Post-op diagnosis: same Procedure & Clinicians Study performed: Colonoscopy Rubber-band ligation of internal hemorrhoid Same procedure(s) as scheduled: Yes Surgeon: Chino Simeon Anesthesia Type: MAC +/- Procedure Notes Procedure in detail: Surgeon: Chino Simeon MD Anesthesia: Marcy Moreno [employer] Procedure: The patient was brought to the endoscopy suite, placed in left lateral decubitus position. The patient was connected to monitoring devices. A time-out was performed. Sedation was administered. Once the patient was adequately sedated, a digital rectal exam was performed and circumferential external hemorrhoids were noted. The scope was then inserted and advanced to the cecum where the appendiceal orifice was identified and photographed. The scope was then slowly withdrawn over greater than 6 minutes. The mucosa was thoroughly inspected. Polyps were identified. The scope was retroflexed in the rectum. Internal hemorrhoids were noted most notably in the left lateral position. The scope was straightened and removed. Next the anoscope was inserted and rubber-band ligation was performed to the left lateral internal hemorrhoid column. Two bands were applied. The patient was awakened and brought to recovery. Scope withdrawal time: 6 minutes Sedation time: 18 minutes Findings: Internal and external hemorrhoids Estimated Blood Loss: 8 Complications: none Post-procedure Recommendations: Colonoscopy in 10 years Disposition: PACU
[2025-07-09 09:15] VITALS: BP 137/106; PULSE 83; RESP 14; TEMP 36.6; O2SAT 98
[2025-07-09 09:19] VITALS: BP 133/106; PULSE 85; RESP 15; O2SAT 96
[2025-07-09 09:24] VITALS: BP 114/91; PULSE 90; RESP 24; TEMP 36.2; O2SAT 96
[2025-07-09 09:25] VITALS: BP 137/101; PULSE 81; RESP 13; TEMP 36.4; O2SAT 95
== END 2025-07-09 10:00 | disposition home or self-care (01) ==
PROVIDERS: PCP Family Medicine; Referring Provider Surgery; Visit Provider Surgery
PROC: 0DJD8ZZ Inspection of Lower Intestinal Tract, Via Natural or Artificial Opening Endoscopic (ICD-10-PCS; CPT 45378; principal; 2025-07-09 08:45)
DX: K62.5 Hemorrhage of anus and rectum (principal); K64.9 Unspecified hemorrhoids; K64.8 Other hemorrhoids
CPT/HCPCS: 45378; 46221; J2704; J7120